=== PATIENT | female | born 1980 | race Caucasian/White ===

== ENCOUNTER 2017-09-10 12:31 | Emergency (ER) | payer SELFPAY ==
[~2017-09-10] VITALS: Ht 170.2 cm; Wt 86.2 kg
[~2017-09-10 12:31] MED LIST: VALIUM5 MG PO; VICODIN 5/500 T1 TAB PO; VOLTAREN75 MG PO
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
--- OUTSIDE RECORDS SUMMARY | 2017-09-10 12:47 | External Medical Summary Rpt | CCD ---
Demographics Preferred Language Vietnamese Marital Status Unknown Church Affiliation Unknown Race Unknown Ethnic Group Unknown Author Author , ALONSO GUPTA Address Unknown Phone Immunization No patient found.
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
--- OUTSIDE RECORDS SUMMARY | 2017-09-10 12:47 | External Medical Summary Rpt | CCD ---
Demographics Preferred Language Tajik Marital Status Unknown Jain Affiliation Unknown Race Unknown Ethnic Group Unknown Author Author , ALONSO GUPTA Address Unknown Phone Immunization No patient found.
--- OUTSIDE RECORDS SUMMARY | 2017-09-10 12:48 | External Medical Summary Rpt ---
Author Author ALONSO Conklin, [employer] Organization [employer] Address Unknown Phone Unavailable Results US RENAL AND BLADDER Observa Value Referen Units Interpr Notes Date tion ce etation Range \.br\RE No No No No Aug 3 NAL informa informa informa informa 2016 BLADDER tion in tion in tion in tion in 8:38 AM source source source source ULTRASO data data data data UND, [ 016 8:38 AM]\.br \\.br\C OMPARIS ON: None\.b r\\.br\ HISTORY : R34-Wanda chuckie and oliguri a-ICD-1 0-CM\.b r\\.br\ FINDING S: right kidney 12 cm in length, left kidney 11.2 cm. No\.br\ hydrone phrosis ,\.br\n o renal stones, no renal masses. Normal bladder .\.br\\ .br\IMP RESSION :\.br\N o acute abnorma lity.\. br\ VA US LOWER EXTREMITY VENOUS BILATERAL Observa Value Referen Units Interpr Notes Date tion ce etation Range This No No No No March 11 patient informa informa informa informa 2016 tion in tion in tion in tion in 2:15 PM receive source source source source d an data data data data examina tion at the [facility] are Vascula r Laborat ory.\.b r\The complet e report can be found in the [facility] ([facility]) Electro fer Medical Record of the patient . EC ECHOCARDIOGRAM COMPLETE W DOPPLER AND COLOR FLOW MAPPING Observa Value Referen Units Interpr Notes Date tion ce etation Range This No No No No Feb 11 patient informa informa informa informa 2016 tion in tion in tion in tion in 1:51 PM receive source source source source d an data data data data examina tion at the [facility] are Vascula r Laborat ory.\.b r\The complet e report can be found in the [facility] ([facility]) Electro fer Medical Record of the patient . NICHOLE Scn Observa Value Referen Units Interpr Notes Date tion ce etation Range NICHOLE Negativ No No No NICHOLE Jan 22 Screen e informa informa informa samples 2016 tion in tion in tion in are 9:46 AM source source source screene data data data d using an automat ed EIA assay. All samples that\.b r\scree n positiv e are titered by an IFA method and will include an NICHOLE pattern .\.br\A titer of < 1:80 is conside red clinica lly insigni ficant. In general , a titer\. br\>= 1:160 is conside red signifi cant positiv e. B12/ FA Observa Value Referen Units Interpr Notes Date tion ce etation Range CYANOCO 478 211 - pg/mL No No Jan 21 BALAMIN 946 informa informa 2016 .TRUE tion in tion in 8:24 PM source source data data Folic 14.53 4.50 - ng/mL No No Jan 21 Acid 37.30 informa informa 2016 Lvl tion in tion in 8:24 PM source source data data Vit D 25-OH Observa Value Referen Units Interpr Notes Date tion ce etation Range Vitamin 18.8 30.0 - ng/mL Low INTERPR Jan 21 D-25 120.0 ETIVE 2016 OH INFORMA 8:04 PM TION: Vitamin D, 25-Hydr oxy\.br \\.br\< 20 ng/mL Deficie ncy\.br \20 - 29 ng/mL Insuffi ciency\ .br\30 - 80 ng/mL Optimum Level\. br\>120 ng/mL Possibl e Toxicit y\.br\\ .br\NOT E: For infants and childre n up to 17 years of age, the optimum level is >=20 ng/mL. This assay accurat tiffany quantif ies the sum of vitamin D3, 25-Hydr oxy and vitamin D2, 25-Hydr oxy. Sed Rate Observa Value Referen Units Interpr Notes Date tion ce etation Range Erythro 24 0 - 20 mm/hr High No Jan 21 cyte informa 2016 sedimen tion in 6:23 PM tation source rate by data Westerg kallie method TSH Observa Value Referen Units Interpr Notes Date tion ce etation Range Thyrotr 1.380 0.270 - mcIU/mL No No Jan 21 opin 4.200 informa informa 2015 [Units/ tion in tion in 5:31 PM volume] source source in data data Serum or Plasma Uric Acid Observa Value Referen Units Interpr Notes Date tion ce etation Range Urate 3.6 2.4 - mg/dL No No Jan 21 [Mass/v 5.7 informa informa 2016 olume] tion in tion in 5:31 PM in source source Serum data data or Plasma Free T4 Observa Value Referen Units Interpr Notes Date tion ce etation Range Thyroxi 1.01 0.93 - ng/dL No No Jan 21 ne (T4) 1.70 informa informa 2016 free tion in tion in 5:31 PM [Mass/v source source olume] data data in Serum or Plasma Hemogram Observa Value Referen Units Interpr Notes Date tion ce etation Range LEUKOCY 7.4 4.0 - x10(3)/ No No Jan 21 GERALD 11.0 mcL informa informa 2016 tion in tion in 4:47 PM source source data data Erythro 4.64 3.80 - x10(6)/ No No Jan 21 cytes 5.10 mcL informa informa 2015 [#/volu tion in tion in 4:47 PM me] in source source Blood data data by Automat ed count Hemoglo 14.2 12.0 - gm/dL No No Jan 21 bin 15.6 informa informa 2015 [Mass/v tion in tion in 4:47 PM olume] source source in data data Blood Hematoc 42.7 35.7 - % No No Jan 21 rit 45.9 informa informa 2016 [Volume tion in tion in 4:47 PM source source Fractio data data n] of Blood by Automat ed count Erythro 92.0 82.5 - fL No No Jan 21 cyte 99.8 informa informa 2016 mean tion in tion in 4:47 PM corpusc source source ular data data volume [Entiti c volume] by Automat ed count Erythro 30.7 27.0 - pg No No Jan 21 cyte 34.3 informa informa 2016 mean tion in tion in 4:47 PM corpusc source source ular data data hemoglo bin [Entiti c mass] by Automat ed count Erythro 33.4 32.1 - gm/dL No No Jan 21 cyte 35.3 informa informa 2016 mean tion in tion in 4:47 PM corpusc source source ular data data hemoglo bin concent ration [Mass/v olume] by Automat ed count Erythro 13.8 11.5 - % No No Jan 21 cyte 15.0 informa informa 2016 distrib tion in tion in 4:47 PM ution source source width data data [Ratio] by Automat ed count Platele 255 144 - x10(3)/ No No Jan 21 ts 423 mcL informa informa 2016 [#/volu tion in tion in 4:47 PM me] in source source Blood data data by Automat ed count MPV 8.7 6.8 - fL No No Jan 21 10.8 informa informa 2016 tion in tion in 4:47 PM source source data data MRI CERVICAL SPINE WO CONTRAST Observa Value Referen Units Interpr Notes Date tion ce etation Range MRI No No No No Jul 04 CERVICA informa informa informa informa 2015 L SPINE tion in tion in tion in tion in 3:05 PM WO source source source source CONTRAS data data data data T\.br\A ugust 2014 at 1445 hrs.\.b r\Clini eav: 34-year -old female. Neck pain, bilater al shoulde r pain.\. br\Tech nical: Axial, sagitta l T1 and T2 imaging .\.br\\ .br\Fin dings:\ .br\Corby tebral body height, signal preserv ed.\.br \Disc height, signal preserv ed.\.br \No intrins ic cord abnorma lity.\. br\No focal disc protrus ion, no canal stenosi s or neural foramin al stenosi s.\.br\ \.br\IM PRESSIO N: Normal cervica l spine MRI\.br \ US RIGHT UPPER QUADRANT Observa Value Referen Units Interpr Notes Date tion ce etation Range Right No No No No Jul 04 upper informa informa informa informa 2014 quadran tion in tion in tion in tion in 2:43 PM t source source source source ultraso data data data data und\.br \\.br\I NDICATI ON: Abdomin al pain.\. br\\.br \FINDIN GS:\.br \\.br\L iver is normal in size and echogen icity. Common bile duct is 2 mm.\.br \Gallbl adder\. br\is normal. Pancrea tic head is normal\ .br\\.b r\Impre ssion:\ .br\\.b r\Breana l\.br\ Diff Observa Value Referen Units Interpr Notes Date tion ce etation Range Neutrop 5 0 - 10 % No No March 18 hils.ba informa informa 2014 nd tion in tion in 11:14 10 source source PM 0 data data leukocy gerald in Blood by Manual count Aniso Slight No No No No March 18 informa informa informa informa 2014 tion in tion in tion in tion in 11:14 source source source source PM data data data data Polychr Slight No No No No March 18 om informa informa informa informa 2014 tion in tion in tion in tion in 11:14 source source source source PM data data data data Ovalocy Occasio No No No No March 18 te nal informa informa informa informa 2014 tion in tion in tion in tion in 11:14 source source source source PM data data data data Crenate Occasio No No No No March 18 d Cell nal informa informa informa informa 2014 tion in tion in tion in tion in 11:14 source source source source PM data data data data Auto Diff Observa Value Referen Units Interpr Notes Date ti ce etation Range Neutrop 52.0 No % No No March 18 hils informa informa informa 2014 [#/volu tion in tion in tion in 11:14 me] in source source source PM Blood data data data by Automat ed count Lymphoc 38.6 No % No No March 18 ytes informa informa informa 2014 [#/volu tion in tion in tion in :14 me] in source source source PM Blood data data data by Automat ed count Monocyt 6.5 No % No No March 5 es informa informa informa 2014 [#/volu tion in tion in tion in 11:14 me] in source source source PM Blood data data data by Automat ed count Eos 2.5 No % No No March 5 Percent informa informa informa 2014 tion in tion in ti in :14 source source source PM data data data Baso 0.4 No % No No March 5 Percent informa informa informa 2014 tion in tion in tion in :14 source source source PM data data data Neut# 4.1 1.8 - x10(3)/ No No March 5 7.7 mcL informa informa 2014 tion in in 14 source source PM data data Lymph# 3.0 0.6 - x10(3)/ No No March 18 4.8 mcL informa informa 2014 tion in tion in :14 source source PM data data Emery# 0.5 0.0 - x10(3)/ No No March 5 1.3 mcL informa informa 2014 tion in tion in :14 source source PM data data Eos# 0.2 0.0 - x10(3)/ No No March 5 0.5 mcL informa informa 2014 tion in tion in :14 source source PM data data Baso# 0.0 0.0 - x10(3)/ No No March 5 0.2 mcL informa informa 2014 tion in ti in :14 source source PM data data CBC Observa Value Referen Units Interpr Notes Date tion ce etation Range LEUKOCY 7.8 4.0 - x10(3)/ No No March 5 GERALD 11.0 mcL informa informa 2014 tion in tion in :14 source source PM data data Erythro 4.77 3.80 - x10(6)/ No No March 5 cytes 5.10 mcL informa informa 2014 [#/volu tion in tion in 11:14 me] in source source PM Blood data data by Automat ed count Hemoglo 14.2 12.0 - gm/dL No No March 18 bin 15.6 informa informa 2014 [Mass/v tion in tion in 11:14 olume] source source PM in data data Blood Hematoc 43.9 35.7 - % No No March 18 rit 45.9 informa informa 2014 [Volume tion in tion in 11:14 source source PM Fractio data data n] of Blood by Automat ed count Erythro 92.1 82.5 - fL No No March 18 cyte 99.8 informa informa 2014 mean tion in tion in 11:14 corpusc source source PM ular data data volume [Entiti c volume] by Automat ed count Erythro 29.8 27.0 - pg No March 18 cyte 34.3 informa informa 2014 mean tion in tion in 11:14 corpusc source source PM ular data data hemoglo bin [Entiti c mass] by Automat ed count Erythro 32.3 32.1 - gm/dL No March 18 cyte 35.3 informa informa 2014 mean tion in tion in 11:14 corpusc source source PM ular data data hemoglo bin concent ration [Mass/v olume] by Automat ed count Erythro 13.5 11.5 - % No March 18 cyte 15.0 informa informa 2014 distrib tion in tion in 11:14 ution source source PM width data data [Ratio] by Automat ed count Platele 269 144 - x10(3)/ No No March 18 ts 423 mcL informa informa 2014 [#/volu tion in tion in 11:14 me] in source source PM Blood data data by Automat ed count MPV 8.8 6.8 - fL No No March 18 10.8 informa informa 2014 tion in tion in 11:14 source source PM data data LDL Observa Value Referen Units Interpr Notes Date tion ce etation Range LDL 94 <=100 mg/dL No < 100 March 18 Calcula informa 2015 jose martin tion in 10:09 source Optimal PM data \.br\10 0 - 129 Near or above optimal \.br\13 0 - 159 Borderl ine High\.b r\160 - 189 High\.b r\ >= 190 Very High Lipid Refx Observa Value Referen Units Interpr Notes Date tion ce etation Range Cholest 165 <=200 mg/dL No < 200 March 18 shoshana informa 2014 [Percen tion in 10:09 tile] source Desirab PM data le\.br\ 200 - 239 Borderl ine High\.b r\>= 240 High TRIGLYC 58 <=150 mg/dL No < 150 March 5 ERIDES. informa 2014 TOTAL tion in Normal\ 10:09 source .br\150 PM data - 199 Borderl ine High\.b r\200 - 499 High\.b r\ >= 500 Very High CHOLEST 59 >=40 mg/dL No > 60 March 18 EROLS.I informa 2014 N HDL tion in Optimal 10:09 source \.br\40 PM data - 60 Accepta ble\.br \ < 40 Low TSH Observa Value Referen Units Interpr Notes Date tion ce etation Range Thyrotr 1.350 0.270 - mcIU/mL No No March 18 opin 4.200 informa informa 2014 [Units/ tion in tion in 10:09 volume] source source PM in data data Serum or Plasma TSH Observa Value Referen Units Interpr Notes Date tion ce etation Range Thyrotr 1.330 0.270 - mcIU/mL No No Jan 18 opin 4.200 informa informa 2013 [Units/ tion in tion in 10:25 volume] source source PM in data data Serum or Plasma
--- OUTSIDE RECORDS SUMMARY | 2017-09-10 12:48 | External Medical Summary Rpt ---
[...] data data data examina tion at the [facility] are Vascula r Laborat ory.\.b r\The complet e report can be found in the [facility] ([facility]) Electro fer Medical Record [...] data data data examina tion at the [facility] are Vascula r Laborat ory.\.b r\The complet e report can be found in the [facility] ([facility]) Electro fer Medical Record [...] T\.br\A ugust 2014 at 1445 hrs.\.b r\Clini eva: 34-year -old female. Neck pain, bilater al [...] in :14 source source PM data data [place]# 0.5 0.0 - x10(3)/ No No March [...]
[2017-09-10 13:25] VITALS: BP 139/65
--- NOTE | 2017-09-10 13:39 | Emergency Room Report ---
History of Present Illness Time Seen by MD España Presenting Problem in Triage Pt arrived:Walked Presenting Problem:LACERATION TO L THUMB Onset of symptoms date/time:09/10/17 or onset unknown for: Treatment Prior to Arrival: [facility]ER Provided by: Sepsis Risk Assessment: Temp: 98.2 B/P: 123/89 MAP: 100 Pulse: 75 Resp: 18 Recent fever? N Clinical Suspician of Infection? N Mental Status: 1 - Regular (Normal Baseline) Sepsis Risk: Have you (or family members/close friends) recently traveled outside the [place]? N If Yes, where/when: Have you had exposure to infectious disease within the past month? N TB? Other? Specify: Source patient, RN notes reviewed Exam Limitations no limitations Comment cut left thumb on a can of beans cooking at home. Last Tetanus?...given in the ED Cardiac Chest Pain Chest pain indicative of cardiac No ALLERGIES Coded Allergies: morphine (09/10/17) Home Medications Reported Medications No Known Home Medications History Medical History General CAD? No Angina: No HI: No Hypertension? No Hyperlipidemia? No CHF? No DVT? No PE? No COPD? No Asthma? No Anemia? No GERD? No Gastric ulcers? No GI Bleed? No Hernia? No Thyroid Problems? No Hypothyroidism? No CVA? No Seizures? No Diabetes? No Renal Insuffiency? No End Stage Renal Disease? No UTI? Yes Stones? Yes GB Disease: No Nephritic Syndrome? No Asplenia? No Hepatitis? No Sickle Cell Disease? No Arthritis? No Migraines? No Cataracts? No Glaucoma? No MRSA? No HIV? No TB? No Anxiety? No Depression? No Cancer? No More? 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 Hx LMP N/A Family History Family Hx Diabetes Yes CAD Yes Hypertension No Hyperlipidemia No Cancer No TB No Social History Smoking Hx Smoker: Current Every Day Smoker Tobacco: Yes Type Cigarettes Packs/day < 1 Pack Alcohol Alcohol: Yes Review of Systems All Other Systems Reviewed and Negative Constitutional see HPI Skin see HPI Physical Exam Vital Signs Vital Signs Date Time Temp Pulse Resp B/P Pulse O2 O2 Flow FiO2 Ox Delivery Rate 09/10 1325 98.0 67 18 139/65 95 09/10 1235 98.2 75 18 123/89 97 General Appearance normal appearance, WD/WN, no apparent distress Respiratory Status No: respiratory distress. Cardiovascular normal exam, regular rate/rhythm Neurologic alert Skin 2 cm laceration on volar surface of left thumb over the proximal phalanx Medical Decision Making LABS/Meds/Orders Pt receiving controlled substance in ED? No Results/Orders Current Medication Orders Sig/Bran Start time Last Medication Dose Route Stop Time Status Admin Multi-Ingredient 0 .STK-MED ONE 09/10 1319 DC Ointment TP Lidocaine HCl 0 .STK-MED ONE 09/10 1257 DC IJ Diphtheria/Pertussis/ 0.5 ML ONCE ONE 09/10 1245 DC 09/10 Tetanus Vacc IM 09/10 1246 1243 Diphtheria/Pertussis/ 0 .STK-MED ONE 09/10 1242 DC Tetanus Vacc IM Procedures Laceration/Wound Repair Laceration/Wound Repair Risks/benefits discussed with pt/guardian? No Tetanus status not up to date, Given TDap in the ED Wound Location finger(s) Wound Length (cm) 2 Wound's Depth, Shape sucutaneous tissue Wound Explored clean Risk of retained FB explained to pt/guardian? No Irrigated w/ Saline (ccs) 50 Wound Prep Hibiclens, Saline Anesthesia 1% Lidocaine Volume Anesthetic (ccs) 5 Wound Debrided none Wound Repaired With sutures Suture Size/Type 5:0, Ethilon Layer Closure No Total Number Sutures 6 Sterile Dressing Applied Yes Splint Applied No Departure Departure Time of Disposition 1336 Disposition DC Home or Self Care(routine) Clinical Impression Primary Impression: Laceration of left thumb Qualifiers: Encounter type: initial encounter Damage to nail status: without damage Foreign body presence: without foreign body Qualified Code: S61.012A - Laceration without foreign body of left thumb without damage to nail, initial encounter Condition STABLE Patient Instructions DI for Laceration Repair, Laceration Repair Additional Instructions Keep stitches dry for 2 days. change dressing daily with ointment. Take antibiotics as directed. Have stitches removed in 9 to 10 days.. Given Keflex 500 mg QID and Bactroban ointment Discharge Counseling Counseled pt/family regarding diagnosis, medications/RX, home care, follow up needs Prescriptions Current Visit Scripts No Known Home Medications ED Critical Care Critical Care No If Critical Care minutes are documented, the time involved in the performance of seperately reportable procedures was not counted toward critical care time documented. I directly delivered medical care to this critically ill and/or injured patient. Timely evaluation and treatment was necessary to address the significant organ system(s) dysfunction present in this patient. at 5602
== END 2017-09-10 13:25 | disposition home or self-care (01) ==
LOC: ER 12:31
PROC: 0HQGXZZ Repair Left Hand Skin, External Approach (ICD-10-PCS; principal; 2017-09-10)
DX: S61.012A Laceration without foreign body of left thumb without damage to nail, initial encounter (principal); Z72.0 Tobacco use; Z23 Encounter for immunization; W26.8XXA Contact with other sharp object(s), not elsewhere classified, initial encounter; Y92.010 Kitchen of single-family (private) house as the place of occurrence of the external cause